=== PATIENT | male | born 1965 | race Caucasian/White ===

== ENCOUNTER 2020-02-06 22:01 | Inpatient (IN) | payer MEDICARE, MEDICAID ==
[~2020-02-06] VITALS: Ht 167.6 cm; Wt 54.4 kg
[2020-02-06 23:02] LABS: BASOPHILS % 0.4 % (0.0-2.0); EOSINOPHILS % 1.2 % (0.0-5.0); HEMATOCRIT. 35.9 % (42.0-52.0); HEMOGLOBIN. 12.1 g/dL (14.0-18.0); LYMPHOCYTES % 14.1 % (20.0-50.0); MEAN CORPUSCULAR HEMOGLOBIN 31.9 pg (28.0-32.0); MEAN CORPUSCULAR VOLUME 94.9 fL (80.0-94.0); MEAN PLATELET VOLUME 9.8 fl (7.4-10.4); MONOCYTES % 2.3 % (2.0-8.0); PLATELET 300 x1000/uL (130-400); RED BLOOD CELL COUNT 3.78 mill/uL (4.7-6.1); RED CELL DISTRIBUTION WIDTH 15.3 % (11.6-14.6)
[2020-02-06 23:02] LABS: CLARITY URINE CLEAR (CLEAR); COLOR URINE YELLOW (YELLOW); KETONES URINE 1+ (NEGATIVE); LEUKOCYTE ESTERASE URINE NEGATIVE (NEGATIVE); NITRITE URINE NEGATIVE (NEGATIVE); OCCULT BLOOD URINE NEGATIVE (NEGATIVE); PROTEIN URINE 2+ (NEGATIVE); SPECIFIC GRAVITY URINE 1.023 (1.005-1.030); UROBILINOGEN URINE 0.2 E.U./dL (0.2-1.0)
[2020-02-06 23:07] LABS: CHLORIDE 109 mEq/L (98-107)
[2020-02-06 23:11] LABS: ETHANOL BLOOD < 10 mg/dL
[2020-02-06 23:14] LABS: *AMPHETAMINES SCREEN URINE NEGATIVE (NEGATIVE); *BARBITURATES SCREEN URINE NEGATIVE (NEGATIVE); *BENZODIAZEPINES SCREEN URINE NEGATIVE (NEGATIVE); *COCAINE SCREEN URINE NEGATIVE (NEGATIVE)
[2020-02-06 23:15] LABS: CANNABINOID URINE SCREEN NEGATIVE (NEGATIVE); METHADONE URINE SCREEN NEGATIVE (NEGATIVE); OPIATES URINE SCREEN NEGATIVE (NEGATIVE); PHENCYCLIDINE URINE SCREEN NEGATIVE (NEGATIVE)
[2020-02-07] MEDS ORDERED: DEXTROSE 50% WATER 50ML SYRINGE IV ONE ×3 (00:38→01:45)
[2020-02-07] MEDS ORDERED: DEXT 10% WATER 1,000 ML IV ONE (01:32)
[2020-02-07] MEDS ORDERED: ACETAMINOPHEN 325MG TABLET PO PRN (02:00)
[2020-02-07] MEDS ORDERED: CLONIDINE 0.1MG TABLET PO PRN (02:00)
[2020-02-07] MEDS ORDERED: ONDANSETRON HCL 4MG/2ML INJ IV PRN (02:00)
[2020-02-07] MEDS ORDERED: DEXT 10% WATER 1,000 ML IV SCH (02:00)
[2020-02-07] MEDS ORDERED: MAGNESIUM/ALUMINUM HYDROXIDE/SIMETHICONE 30ML UDC PO PRN (02:00)
[2020-02-07 11:47] LABS: CHLORIDE 107 mEq/L (98-107)
[2020-02-08 04:13] LABS: BASOPHILS % 0.8 % (0.0-2.0); EOSINOPHILS % 5.1 % (0.0-5.0); HEMATOCRIT. 36.3 % (42.0-52.0); MEAN CORPUSCULAR HEMOGLOBIN 31.6 pg (28.0-32.0); MEAN CORPUSCULAR VOLUME 95.2 fL (80.0-94.0); MEAN PLATELET VOLUME 9.3 fl (7.4-10.4); MONOCYTES % 6.9 % (2.0-8.0); NEUTROPHILS % 62.2 % (40.0-76.0); PLATELET 272 x1000/uL (130-400); RED BLOOD CELL COUNT 3.81 mill/uL (4.7-6.1); RED CELL DISTRIBUTION WIDTH 15.3 % (11.6-14.6)
[2020-02-08 04:19] LABS: CHLORIDE 109 mEq/L (98-107)
[2020-02-08] MEDS ORDERED: INSULIN LISPRO 100 UNITS/ML SUBCUT SCH (08:00)
[2020-02-08] MEDS ORDERED: INSULIN LISPRO 100 UNITS/ML SUBCUT NR (17:45)
[2020-02-08] MEDS: INSULIN GLARGINE UD 100 UNITS/ML SYR SUBCUT SCH (19:20)
[2020-02-09] MEDS: BLOOD SUGAR DIAGNOSTIC STRIP TEST SCH ×4 (09:00→21:46)
[2020-02-09] MEDS: INSULIN GLARGINE UD 100 UNITS/ML SYR SUBCUT SCH ×2 (10:00→13:22)
[2020-02-09 16:33] LABS: BASOPHILS % 1.2 % (0.0-2.0); HEMATOCRIT. 38.4 % (42.0-52.0); HEMOGLOBIN. 12.9 g/dL (14.0-18.0); LYMPHOCYTES % 24.1 % (20.0-50.0); MEAN CORPUSCULAR HEMOGLOBIN 31.9 pg (28.0-32.0); MEAN CORPUSCULAR VOLUME 94.6 fL (80.0-94.0); MEAN PLATELET VOLUME 9.4 fl (7.4-10.4); MONOCYTES % 6.4 % (2.0-8.0); NEUTROPHILS % 65.3 % (40.0-76.0); PLATELET 322 x1000/uL (130-400); RED BLOOD CELL COUNT 4.06 mill/uL (4.7-6.1); RED CELL DISTRIBUTION WIDTH 15.3 % (11.6-14.6)
[2020-02-09 16:36] LABS: CHLORIDE 103 mEq/L (98-107)
[2020-02-09 21:25] VITALS: BP 129/77
[2020-02-09 21:30] VITALS: BP 129/77
[2020-02-09 22:00] VITALS: BP 129/77
[2020-02-09] MEDS: INSULIN REGULAR (HUMULIN R) 300UNITS/3ML SUBCUT NR (22:45)
[2020-02-10] MEDS: BLOOD SUGAR DIAGNOSTIC STRIP TEST SCH ×4 (07:21→21:22)
[2020-02-10 08:00] VITALS: BP 122/66
[2020-02-10] MEDS: ENOXAPARIN 40MG/0.4ML SYR SUBCUT SCH (09:00)
[2020-02-10] MEDS: INSULIN REGULAR (HUMULIN R) 300UNITS/3ML SUBCUT NR (09:06)
[2020-02-10] MEDS: INSULIN GLARGINE UD 100 UNITS/ML SYR SUBCUT SCH ×2 (09:49→16:41)
[2020-02-10] MEDS ORDERED: DEXTROSE 50% WATER 50ML SYRINGE IV PRN (12:45)
[2020-02-10] MEDS ORDERED: INSULIN LISPRO 100 UNITS/ML SUBCUT SCH (12:50)
[2020-02-10 15:53] VITALS: BP 119/56
[2020-02-10] MEDS ORDERED: INSULIN LISPRO 100 UNITS/ML SUBCUT NR (17:15)
[2020-02-10] MEDS: INSULIN LISPRO 100 UNITS/ML SUBCUT SCH (17:34)
[2020-02-10] MEDS ORDERED: INSULIN REGULAR (HUMULIN R) 300UNITS/3ML SUBCUT NR (18:00)
[2020-02-10 20:00] VITALS: BP 147/63
[2020-02-10] MEDS ORDERED: INSULIN GLARGINE UD 100 UNITS/ML SYR SUBCUT SCH ×2 (22:00→23:00)
[2020-02-11] MEDS: INSULIN LISPRO 100 UNITS/ML SUBCUT SCH ×3 (06:54→17:20)
[2020-02-11] MEDS: BLOOD SUGAR DIAGNOSTIC STRIP TEST SCH ×3 (06:54→17:20)
[2020-02-11 07:24] VITALS: BP 110/50
[2020-02-11] MEDS: ENOXAPARIN 40MG/0.4ML SYR SUBCUT SCH (08:52)
== END 2020-02-11 17:29 | disposition left against medical advice (07) | DRG 918 ==
LOC: ER 22:01 → EDBEDREQ 02-07 03:27 → EDBEDREQTM 02-07 03:29 → EDBEDREQSVC 02-07 11:34 → EDBEDREQTM 02-08 07:50 → EDBEDREQDT 02-08 07:50 → EDBEDREQSVC 02-09 10:54 → ENRESERV 02-09 19:02 → 6EST 02-09 21:24
PROVIDERS: ADMIT Hospitalist; ATTEND Hospitalist
DX: T38.3X2A Poisoning by insulin and oral hypoglycemic [antidiabetic] drugs, intentional self-harm, initial encounter (principal); K21.9 Gastro-esophageal reflux disease without esophagitis; F32.9 Major depressive disorder, single episode, unspecified; E11.649 Type 2 diabetes mellitus with hypoglycemia without coma; Y92.89 Other specified places as the place of occurrence of the external cause
CPT/HCPCS: 36415; 80053; 80305; 80307; 80320; 80329; 81003; 82962; 83036; 85025; 93005; 96365; 96366; 96376; 99291; J1650; J1815; G0480

== ENCOUNTER 2020-02-12 08:13 | Emergency (ER) | payer MEDICARE, MEDICAID ==
[~2020-02-12] VITALS: Ht 170.2 cm; Wt 59.0 kg
[2020-02-12] MEDS ORDERED: SODIUM CHLORIDE 0.9% 1,000 ML IV ONE ×2 (09:02→11:28)
[2020-02-12 09:45] LABS: BASOPHILS % 0.7 % (0.0-2.0); EOSINOPHILS % 0.1 % (0.0-5.0); HEMATOCRIT. 41.6 % (42.0-52.0); HEMOGLOBIN. 13.8 g/dL (14.0-18.0); MEAN CORPUSCULAR HEMOGLOBIN 31.6 pg (28.0-32.0); MEAN CORPUSCULAR VOLUME 95.5 fL (80.0-94.0); MEAN PLATELET VOLUME 9.7 fl (7.4-10.4); NEUTROPHILS % 78.2 % (40.0-76.0); PLATELET 356 x1000/uL (130-400); RED BLOOD CELL COUNT 4.36 mill/uL (4.7-6.1); RED CELL DISTRIBUTION WIDTH 14.7 % (11.6-14.6)
[2020-02-12 09:51] LABS: CHLORIDE 97 mEq/L (98-107)
[2020-02-12 09:59] LABS: BETA HYDROXYBUTYRATE 1.9 mMol/L (0.0-0.3)
[2020-02-12 10:28] LABS: CLARITY URINE CLEAR (CLEAR); COLOR URINE YELLOW (YELLOW); KETONES URINE 1+ (NEGATIVE); LEUKOCYTE ESTERASE URINE NEGATIVE (NEGATIVE); NITRITE URINE NEGATIVE (NEGATIVE); OCCULT BLOOD URINE NEGATIVE (NEGATIVE); PROTEIN URINE 1+ (NEGATIVE); SPECIFIC GRAVITY URINE 1.028 (1.005-1.030); UROBILINOGEN URINE 0.2 E.U./dL (0.2-1.0)
[2020-02-12] MEDS ORDERED: INSULIN REGULAR (HUMULIN R) 300UNITS/3ML SUBCUT ONE ×2 (10:30→11:30)
[2020-02-12] MEDS ORDERED: SODIUM CHLORIDE 0.9% 1,000 ML IV SCH (14:51)
[2020-02-12] MEDS ORDERED: MAGNESIUM/ALUMINUM HYDROXIDE/SIMETHICONE 30ML UDC PO PRN (15:00)
[2020-02-12] MEDS ORDERED: LORAZEPAM 2MG/ML CPJ IV PRN (15:00)
[2020-02-12] MEDS ORDERED: HYDROCODONE/ACETAMINOPHEN 5/325MG TABLET PO PRN (15:00)
[2020-02-12] MEDS ORDERED: ONDANSETRON HCL 4MG/2ML INJ IV PRN (15:00)
[2020-02-12] MEDS ORDERED: CLONIDINE 0.1MG TABLET PO PRN (15:00)
[2020-02-12] MEDS ORDERED: ACETAMINOPHEN 325MG TABLET PO PRN (15:00)
[2020-02-12 20:27] VITALS: BP 101/62
[2020-02-12] MEDS ORDERED: INSULIN GLARGINE UD 100 UNITS/ML SYR SUBCUT SCH (22:00)
== END 2020-02-12 21:48 | disposition left against medical advice (07) ==
LOC: ER 08:13 → CANRESERV 21:37 → ENRESERV 21:37 → ER 21:48 → CANBEDREQ 21:49
DX: E11.65 Type 2 diabetes mellitus with hyperglycemia (principal); K21.9 Gastro-esophageal reflux disease without esophagitis; E87.8 Other disorders of electrolyte and fluid balance, not elsewhere classified; N28.9 Disorder of kidney and ureter, unspecified; F17.200 Nicotine dependence, unspecified, uncomplicated; Z79.4 Long term (current) use of insulin
CPT/HCPCS: 36415; 71045; 80053; 81003; 82010; 82962; 83690; 85025; 96360; 96361; 99285; J7030; J1815

== ENCOUNTER 2020-02-13 13:52 | Emergency (ER) | payer MEDICARE, MEDICAID ==
[~2020-02-13] VITALS: Ht 177.8 cm; Wt 68.0 kg
[2020-02-13] MEDS ORDERED: ONDANSETRON HCL 4MG/2ML INJ IV STA (14:36)
[2020-02-13] MEDS ORDERED: SODIUM CHLORIDE 0.9% 1,000 ML IV ONE (14:36)
[2020-02-13 15:26] LABS: BASOPHILS % 0.3 % (0.0-2.0); HEMATOCRIT. 44.3 % (42.0-52.0); HEMOGLOBIN. 13.3 g/dL (14.0-18.0); LYMPHOCYTES % 9.6 % (20.0-50.0); MEAN CORPUSCULAR HEMOGLOBIN 31.4 pg (28.0-32.0); MEAN CORPUSCULAR VOLUME 104.9 fL (80.0-94.0); MEAN PLATELET VOLUME 10.5 fl (7.4-10.4); MONOCYTES % 10.2 % (2.0-8.0); NEUTROPHILS % 79.9 % (40.0-76.0); PLATELET 351 x1000/uL (130-400); RED BLOOD CELL COUNT 4.23 mill/uL (4.7-6.1); RED CELL DISTRIBUTION WIDTH 16.4 % (11.6-14.6)
[2020-02-13 15:31] LABS: CHLORIDE 81 mEq/L (98-107)
[2020-02-13 15:31] LABS: CLARITY URINE CLEAR (CLEAR); COLOR URINE YELLOW (YELLOW); KETONES URINE 3+ (NEGATIVE); LEUKOCYTE ESTERASE URINE NEGATIVE (NEGATIVE); NITRITE URINE NEGATIVE (NEGATIVE); OCCULT BLOOD URINE 1+ (NEGATIVE); PROTEIN URINE TRACE (NEGATIVE); SPECIFIC GRAVITY URINE 1.025 (1.005-1.030); UROBILINOGEN URINE 0.2 E.U./dL (0.2-1.0)
[2020-02-13 15:32] LABS: INR 0.9; PROTHROMBIN TIME 10.3 sec (9.6-11.0)
[2020-02-13] MEDS ORDERED: INSULIN REGULAR (DRIP) 100 UNITS in SODIUM CHLORIDE 0.9% 99 ML IV SCH (16:45)
[2020-02-13 17:50] LABS: BG BASE EXCESS -19.3 mmol/L (-2.0-2.0); BG CARBOXYHEMOGLOBIN 1.3 % (0.5-1.5); BG DEOXYHEMOGLOBIN 3.4 % (0.0-5.0); BG FRACTION INSPIRED OXYGEN 21; BG HCO3 ACT 7.3 mmol/L (22.0-26.0); BG METHEMOGLOBIN 0.1 % (0.0-1.5); BG OXYGEN SATURATION 96.6 % (92.0-98.5); BG OXYHEMOGLOBIN 95.2 % (94.0-97.0); BG PCO2 20.7 mmHg (35.0-45.0); BG PH 7.167 (7.350-7.450); BG PO2 110.1 mmHg (75.0-100.0); BG SAMPLE SITE RIGHT RADIAL; BG VENT MODE ROOM AIR
[2020-02-13] MEDS ORDERED: IOHEXOL-300 100 ML BOTTLE ONE (21:35)
[2020-02-14 08:34] LABS: CHLORIDE 113 mEq/L (98-107)
[2020-02-14 08:41] LABS: BETA HYDROXYBUTYRATE 3.5 mMol/L (0.0-0.3)
[2020-02-14] MEDS ORDERED: PANTOPRAZOLE SODIUM 40 MG/VIAL IV SCH (09:15)
[2020-02-14] MEDS ORDERED: ACETAMINOPHEN 325MG TABLET PO PRN (09:15)
[2020-02-14] MEDS ORDERED: POTASSIUM CHLORIDE 20MEQ TABLET SR PO SCH (09:15)
[2020-02-14] MEDS ORDERED: ONDANSETRON HCL 4MG/2ML INJ IV PRN (09:15)
[2020-02-14] MEDS: SODIUM CHLORIDE 0.9% 1,000 ML IV SCH ×2 (10:00→21:39)
[2020-02-14 11:10] LABS: BASOPHILS % 0.5 % (0.0-2.0); EOSINOPHILS % 0.2 % (0.0-5.0); HEMATOCRIT. 37.8 % (42.0-52.0); HEMOGLOBIN. 12.6 g/dL (14.0-18.0); LYMPHOCYTES % 12.9 % (20.0-50.0); MEAN CORPUSCULAR HEMOGLOBIN 31.4 pg (28.0-32.0); MEAN CORPUSCULAR VOLUME 94.1 fL (80.0-94.0); MEAN PLATELET VOLUME 9.5 fl (7.4-10.4); MONOCYTES % 7.3 % (2.0-8.0); NEUTROPHILS % 79.1 % (40.0-76.0); PLATELET 319 x1000/uL (130-400); RED BLOOD CELL COUNT 4.02 mill/uL (4.7-6.1); RED CELL DISTRIBUTION WIDTH 14.9 % (11.6-14.6)
[2020-02-14 11:18] LABS: CHLORIDE 113 mEq/L (98-107)
[2020-02-14] MEDS: PIPERACILLIN/TAZ 3.375G PREMIX 50 ML IV SCH ×2 (12:30→18:57)
[2020-02-14] MEDS ORDERED: HEPARIN 5000 UNITS/ML VIAL SUBCUT SCH (21:00)
[2020-02-15] MEDS: PIPERACILLIN/TAZ 3.375G PREMIX 50 ML IV SCH
[2020-02-15] MEDS ORDERED: INSULIN R (DRIP) 100 UNITS in SODIUM CHLORIDE 0.9% 100ML IV PRN (02:45)
[2020-02-15 05:48] LABS: BASOPHILS % 0.9 % (0.0-2.0); EOSINOPHILS % 0.8 % (0.0-5.0); HEMATOCRIT. 38.7 % (42.0-52.0); LYMPHOCYTES % 13.9 % (20.0-50.0); MEAN CORPUSCULAR HEMOGLOBIN 31.7 pg (28.0-32.0); MEAN CORPUSCULAR VOLUME 94.3 fL (80.0-94.0); MEAN PLATELET VOLUME 9.6 fl (7.4-10.4); MONOCYTES % 5.3 % (2.0-8.0); NEUTROPHILS % 79.1 % (40.0-76.0); PLATELET 280 x1000/uL (130-400); RED BLOOD CELL COUNT 4.11 mill/uL (4.7-6.1); RED CELL DISTRIBUTION WIDTH 14.7 % (11.6-14.6)
[2020-02-15 05:55] LABS: CHLORIDE 113 mEq/L (98-107)
[2020-02-15 05:57] LABS: INR 0.9; PROTHROMBIN TIME 10.2 sec (9.6-11.0)
[2020-02-15 09:30] VITALS: BP 165/71
[2020-02-15] MEDS ORDERED: DEXTROSE 50% WATER 50ML SYRINGE IV PRN (12:30)
[2020-02-15] MEDS ORDERED: INSULIN GLARGINE UD 100 UNITS/ML SYR SUBCUT SCH (12:30)
[2020-02-15] MEDS ORDERED: BLOOD SUGAR DIAGNOSTIC STRIP TEST SCH (13:00)
[2020-02-15] MEDS ORDERED: INSULIN LISPRO 100 UNITS/ML SUBCUT SCH (13:20)
== END 2020-02-15 11:45 | disposition left against medical advice (07) ==
LOC: ER 13:52 → EDBEDREQDT 02-15 03:33 → EDBEDREQSVC 02-15 03:33 → EDBEDREQTM 02-15 03:33 → ENRESERV 02-15 07:46 → CANRESERV 02-15 07:46 → ER 02-15 11:45 → CANBEDREQ 02-15 12:54
DX: A41.9 Sepsis, unspecified organism (principal); K52.9 Noninfective gastroenteritis and colitis, unspecified; I21.4 Non-ST elevation (NSTEMI) myocardial infarction; E11.10 Type 2 diabetes mellitus with ketoacidosis without coma; N30.00 Acute cystitis without hematuria; E87.2 Acidosis; K29.00 Acute gastritis without bleeding; N17.9 Acute kidney failure, unspecified; K21.9 Gastro-esophageal reflux disease without esophagitis; E87.1 Hypo-osmolality and hyponatremia; E87.5 Hyperkalemia; R74.0 Nonspecific elevation of levels of transaminase and lactic acid dehydrogenase [LDH]; D50.9 Iron deficiency anemia, unspecified; K76.0 Fatty (change of) liver, not elsewhere classified; E87.8 Other disorders of electrolyte and fluid balance, not elsewhere classified; Z90.49 Acquired absence of other specified parts of digestive tract; Z79.4 Long term (current) use of insulin
CPT/HCPCS: 36415; 36600; 74177; 80053; 81003; 82010; 82248; 82375; 82805; 82962; 83690; 83735; 84484; 85025; 85610; 85730; 99291; J1815; J2405; J2543; J7030; J7050; Q9967; 99285

== ENCOUNTER 2020-02-15 16:05 | Inpatient (IN) | payer MEDICARE, MEDICAID ==
[~2020-02-15] VITALS: Ht 180.3 cm; Wt 53.2 kg
[2020-02-15] MEDS ORDERED: SODIUM CHLORIDE 0.9% 1,000 ML IV ONE (17:07)
[2020-02-15 18:20] LABS: HEMATOCRIT. 41.3 % (42.0-52.0); MEAN CORPUSCULAR HEMOGLOBIN 31.2 pg (28.0-32.0); MEAN CORPUSCULAR VOLUME 107.9 fL (80.0-94.0); PLATELET 247 x1000/uL (130-400); RED BLOOD CELL COUNT 3.83 mill/uL (4.7-6.1); RED CELL DISTRIBUTION WIDTH 16.1 % (11.6-14.6)
[2020-02-15 18:26] LABS: CHLORIDE 87 mEq/L (98-107)
[2020-02-15 18:30] LABS: ETHANOL BLOOD < 10 mg/dL
[2020-02-15 18:33] LABS: PROTHROMBIN TIME 10.7 sec (9.6-11.0)
[2020-02-15 18:36] LABS: BETA HYDROXYBUTYRATE 9.5 mMol/L (0.0-0.3)
[2020-02-15] MEDS: ONDANSETRON HCL 4MG/2ML INJ IV STA ×2 (18:39→18:48)
[2020-02-15] MEDS ORDERED: INSULIN REGULAR (DRIP) 100 UNITS in SODIUM CHLORIDE 0.9% 100 ML IV SCH (18:49)
[2020-02-15] MEDS ORDERED: SODIUM CHLORIDE 0.9% 1,000 ML IV STA (18:49)
[2020-02-15 18:50] LABS: CLARITY URINE CLEAR (CLEAR); COLOR URINE YELLOW (YELLOW); KETONES URINE 2+ (NEGATIVE); LEUKOCYTE ESTERASE URINE NEGATIVE (NEGATIVE); NITRITE URINE NEGATIVE (NEGATIVE); OCCULT BLOOD URINE NEGATIVE (NEGATIVE); PROTEIN URINE NEGATIVE (NEGATIVE); SPECIFIC GRAVITY URINE 1.023 (1.005-1.030); UROBILINOGEN URINE 0.2 E.U./dL (0.2-1.0)
[2020-02-15] MEDS ORDERED: SODIUM BICARBONATE 8.4% 1 MEQ/ML 50ML SYR IV ONE (19:00)
[2020-02-15] MEDS ORDERED: CALCIUM CHLORIDE 1GM/10ML SYR IV ONE (19:00)
[2020-02-15] MEDS ORDERED: INSULIN REGULAR (HUMULIN R) 300UNITS/3ML IV ONE (19:00)
[2020-02-15] MEDS ORDERED: DEXTROSE 50% WATER 50ML SYRINGE IV ONE (19:00)
[2020-02-15 19:05] LABS: *AMPHETAMINES SCREEN URINE NEGATIVE (NEGATIVE); *BARBITURATES SCREEN URINE NEGATIVE (NEGATIVE); *BENZODIAZEPINES SCREEN URINE NEGATIVE (NEGATIVE); *COCAINE SCREEN URINE NEGATIVE (NEGATIVE); METHADONE URINE SCREEN NEGATIVE (NEGATIVE); OPIATES URINE SCREEN NEGATIVE (NEGATIVE)
[2020-02-15 19:06] LABS: CANNABINOID URINE SCREEN NEGATIVE (NEGATIVE); PHENCYCLIDINE URINE SCREEN NEGATIVE (NEGATIVE)
[2020-02-15 19:44] LABS: PLATELET ESTIMATE NORMAL
[2020-02-15] MEDS ORDERED: SODIUM CHLORIDE 0.9% 1,000 ML IV SCH ×2 (20:30→21:23)
[2020-02-15] MEDS ORDERED: CEFTRIAXONE 1 G PREMIX 50 ML IV ONE (20:30)
[2020-02-15] MEDS ORDERED: GUAIFENESIN 200MG/10ML SUGAR FREE UDC PO PRN (21:30)
[2020-02-15] MEDS ORDERED: HYDRALAZINE 20MG/ML VIAL IV PRN (21:30)
[2020-02-15] MEDS ORDERED: ACETAMINOPHEN 325MG TABLET PO PRN (21:30)
[2020-02-15] MEDS ORDERED: MORPHINE SULFATE 2 MG/ML CPJ (NOT FOR IM USE) IV PRN (21:30)
[2020-02-15] MEDS ORDERED: LORAZEPAM 2MG/ML CPJ IV PRN (21:30)
[2020-02-15] MEDS ORDERED: DIPHENHYDRAMINE 50MG/ML VIAL IV PRN (21:30)
[2020-02-15] MEDS ORDERED: ONDANSETRON HCL 4MG/2ML INJ IV PRN (21:30)
[2020-02-15] MEDS ORDERED: IPRATROPIUM/ALBUTEROL 0.5-3(2.5)MG/3ML NEB HHN PRN (21:30)
[2020-02-15] MEDS ORDERED: CLONIDINE 0.1MG TABLET PO PRN (21:30)
[2020-02-15] MEDS ORDERED: HYDROCODONE/ACETAMINOPHEN 10/325MG TABLET PO PRN (21:30)
[2020-02-15] MEDS ORDERED: BLOOD SUGAR DIAGNOSTIC STRIP TEST SCH (21:30)
[2020-02-15] MEDS ORDERED: DEXTROSE 50% WATER 50ML SYRINGE IV PRN ×2 (21:30)
[2020-02-15] MEDS ORDERED: ENOXAPARIN 40MG/0.4ML SYR SUBCUT SCH (21:30)
[2020-02-15] MEDS ORDERED: MAGNESIUM/ALUMINUM HYDROXIDE/SIMETHICONE 30ML UDC PO PRN (21:30)
[2020-02-15] MEDS ORDERED: DOCUSATE SODIUM 100MG CAPSULE PO PRN (21:30)
[2020-02-15 21:52] LABS: PHOSPHORUS 5.3 mg/dL (2.5-4.9)
[2020-02-15 21:55] LABS: CREATINE KINASE MB FRACTION 4.5 ng/mL (0.5-3.6)
[2020-02-15 21:56] LABS: BG BASE EXCESS -19.7 mmol/L (-2.0-2.0); BG CARBOXYHEMOGLOBIN 0.3 % (0.5-1.5); BG DEOXYHEMOGLOBIN 3.4 % (0.0-5.0); BG FRACTION INSPIRED OXYGEN 21; BG METHEMOGLOBIN 0.3 % (0.0-1.5); BG OXYGEN SATURATION 96.6 % (92.0-98.5); BG PCO2 15.3 mmHg (35.0-45.0); BG PH 7.209 (7.350-7.450); BG PO2 100.7 mmHg (75.0-100.0); BG SAMPLE SITE LEFT BRACHIAL; BG TOTAL HEMOGLOBIN 11.1 g/dL (12.0-18.0); BG VENT MODE ROOM AIR
[2020-02-15] MEDS ORDERED: SODIUM BICARBONATE 8.4% 1 MEQ/ML 50ML SYR IV NR (22:15)
[2020-02-15] MEDS: ENOXAPARIN 60MG/0.6ML SYR SUBCUT SCH (22:53)
[2020-02-16 00:37] LABS: PHOSPHORUS 2.2 mg/dL (2.5-4.9)
[2020-02-16 01:54] LABS: CHLORIDE 111 mEq/L (98-107)
[2020-02-16 01:59] LABS: PHOSPHORUS 1.8 mg/dL (2.5-4.9)
[2020-02-16] MEDS ORDERED: SODIUM CHL 0.45% + KCL 20MEQ/L 1,000 ML IV SCH ×2 (04:00→09:00)
[2020-02-16 06:44] LABS: BASOPHILS % 0.3 % (0.0-2.0); EOSINOPHILS % 0.3 % (0.0-5.0); HEMOGLOBIN. 10.1 g/dL (14.0-18.0); LYMPHOCYTES % 18.2 % (20.0-50.0); MEAN CORPUSCULAR HEMOGLOBIN 31.3 pg (28.0-32.0); MEAN CORPUSCULAR VOLUME 93.3 fL (80.0-94.0); MEAN PLATELET VOLUME 9.7 fl (7.4-10.4); MONOCYTES % 6.8 % (2.0-8.0); NEUTROPHILS % 74.4 % (40.0-76.0); PLATELET 227 x1000/uL (130-400); RED BLOOD CELL COUNT 3.22 mill/uL (4.7-6.1); RED CELL DISTRIBUTION WIDTH 14.5 % (11.6-14.6)
[2020-02-16 06:55] LABS: CHLORIDE 112 mEq/L (98-107)
[2020-02-16 07:05] LABS: CREATINE KINASE 102 IU/L (39-308)
[2020-02-16 07:06] LABS: CREATINE KINASE MB FRACTION 6.6 ng/mL (0.5-3.6)
[2020-02-16 09:39] LABS: BG BASE EXCESS -8.6 mmol/L (-2.0-2.0); BG DEOXYHEMOGLOBIN 6.4 % (0.0-5.0); BG FRACTION INSPIRED OXYGEN 21; BG HCO3 ACT 14.9 mmol/L (22.0-26.0); BG METHEMOGLOBIN 0.3 % (0.0-1.5); BG OXYGEN SATURATION 93.6 % (92.0-98.5); BG OXYHEMOGLOBIN 93.3 % (94.0-97.0); BG PH 7.394 (7.350-7.450); BG PO2 73.9 mmHg (75.0-100.0); BG SAMPLE SITE RIGHT BRACHIAL; BG TOTAL HEMOGLOBIN 10.1 g/dL (12.0-18.0); BG VENT MODE ROOM AIR
[2020-02-16 10:04] LABS: CHLORIDE 114 mEq/L (98-107)
[2020-02-16] MEDS ORDERED: DEXTROSE 50% WATER 50ML SYRINGE IV PRN (11:00)
[2020-02-16] MEDS ORDERED: SODIUM CHLORIDE 0.45% 1,000 ML IV ONE (12:00)
[2020-02-16 12:52] LABS: CHLORIDE 113 mEq/L (98-107)
[2020-02-16 16:28] LABS: CHLORIDE 109 mEq/L (98-107)
[2020-02-16] MEDS: BLOOD SUGAR DIAGNOSTIC STRIP TEST SCH ×2 (16:49→21:30)
[2020-02-16] MEDS: INSULIN LISPRO 100 UNITS/ML SUBCUT SCH ×2 (16:53→21:46)
[2020-02-16 21:00] VITALS: BP 131/68
[2020-02-16 21:03] VITALS: BP 134/71
[2020-02-16] MEDS: ENOXAPARIN 60MG/0.6ML SYR SUBCUT SCH (21:31)
[2020-02-16] MEDS: SODIUM CHLORIDE 0.9% INJ 3ML FLUSH IVF SCH (21:52)
[2020-02-16 22:00] VITALS: BP 139/63
[2020-02-17] VITALS (12 sets, daily range): BP systolic 105–152; BP diastolic 55–82
[2020-02-17] MEDS ORDERED: ERYT1OIN6 OP (01:19)
[2020-02-17] MEDS ORDERED: B12/1TAB MT (01:20)
[2020-02-17] MEDS ORDERED: VITA-261 MT (01:21)
[2020-02-17] MEDS ORDERED: ASCO-362 PO (01:22)
[2020-02-17] MEDS ORDERED: ASPI-1158 PO (01:27)
[2020-02-17] MEDS ORDERED: FLUT15.844 BOTHNSTRLS (01:27)
[2020-02-17] MEDS ORDERED: FLUO60SO3 TP (01:30)
[2020-02-17] MEDS ORDERED: MULT-1146 MT (01:31)
[2020-02-17] MEDS ORDERED: ARTIFICIAL TEARS RIGHTEYE (01:35)
[2020-02-17] MEDS ORDERED: GLYC30DR OP (01:38)
[2020-02-17] MEDS ORDERED: PREDNISONE LEFTEYE (02:14)
[2020-02-17] MEDS ORDERED: KETO15CR2 TP (02:15)
[2020-02-17] MEDS: BLOOD SUGAR DIAGNOSTIC STRIP TEST SCH ×4 (06:06→20:52)
[2020-02-17] MEDS: SODIUM CHLORIDE 0.9% INJ 3ML FLUSH IVF SCH ×3 (06:07→21:08)
[2020-02-17] MEDS: ENOXAPARIN 60MG/0.6ML SYR SUBCUT SCH ×3 (08:01→20:52)
[2020-02-17] MEDS: INSULIN LISPRO 100 UNITS/ML SUBCUT SCH ×4 (08:02→21:00)
[2020-02-17] MEDS: ASPIRIN 81MG TABLET PO SCH (10:26)
[2020-02-17] MEDS: CLOPIDOGREL 75MG TABLET PO SCH (10:26)
[2020-02-17] MEDS: INSULIN GLARGINE UD 100 UNITS/ML SYR SUBCUT SCH (10:27)
[2020-02-17 10:43] LABS: HEMOGLOBIN 11.6 g/dL (14.0-18.0); MEAN CORPUSCULAR HEMOGLOBIN 31.9 pg (28.0-32.0); MEAN CORPUSCULAR VOLUME 96.5 fL (80.0-94.0); PLATELET 232 x1000/uL (130-400); RED BLOOD CELL COUNT 3.63 mill/uL (4.7-6.1); RED CELL DISTRIBUTION WIDTH 15.1 % (11.6-14.6)
[2020-02-17 10:53] LABS: CHLORIDE 104 mEq/L (98-107)
[2020-02-17] MEDS: METOPROLOL TARTRATE 25MG TABLET PO SCH (20:52)
[2020-02-17] MEDS ORDERED: ATORVASTATIN CALCIUM 40MG TABLET PO SCH (21:00)
[2020-02-18] VITALS: BP 116/61
[2020-02-18 02:00] VITALS: BP 140/75
[2020-02-18 06:00] VITALS: BP 136/79
[2020-02-18] MEDS: BLOOD SUGAR DIAGNOSTIC STRIP TEST SCH ×2 (06:51→12:01)
[2020-02-18] MEDS: SODIUM CHLORIDE 0.9% INJ 3ML FLUSH IVF SCH (06:52)
[2020-02-18] MEDS: INSULIN LISPRO 100 UNITS/ML SUBCUT SCH ×3 (07:20→12:04)
[2020-02-18 07:27] LABS: HEMATOCRIT. 30.8 % (42.0-52.0); HEMOGLOBIN. 10.6 g/dL (14.0-18.0); MEAN CORPUSCULAR VOLUME 93.1 fL (80.0-94.0); MEAN PLATELET VOLUME 10.1 fl (7.4-10.4); PLATELET 210 x1000/uL (130-400); RED CELL DISTRIBUTION WIDTH 14.4 % (11.6-14.6)
[2020-02-18 08:00] VITALS: BP 131/65
[2020-02-18 08:01] LABS: CHLORIDE 106 mEq/L (98-107)
[2020-02-18] MEDS: METOPROLOL TARTRATE 25MG TABLET PO SCH ×2 (08:45→08:55)
[2020-02-18] MEDS: CLOPIDOGREL 75MG TABLET PO SCH ×2 (08:45→08:55)
[2020-02-18] MEDS: ENOXAPARIN 60MG/0.6ML SYR SUBCUT SCH ×2 (08:47→08:55)
[2020-02-18] MEDS: ASPIRIN 81MG TABLET PO SCH ×2 (08:47→08:55)
[2020-02-18 10:00] VITALS: BP 107/45
[2020-02-18] MEDS: INSULIN GLARGINE UD 100 UNITS/ML SYR SUBCUT SCH (10:00)
[2020-02-18 11:39] VITALS: BP 171/86
[2020-02-18 17:19] LABS: PLATELET ESTIMATE NORMAL
== END 2020-02-18 12:20 | disposition left against medical advice (07) | DRG 280 ==
LOC: ER 16:05 → EDBEDREQSVC 20:49 → EDBEDREQ 20:49 → EDBEDREQSVC 02-16 11:39 → ENRESERV 02-16 19:02 → 3WST 02-16 20:52
PROVIDERS: ADMIT Internal Medicine; ATTEND Internal Medicine
DX: I21.4 Non-ST elevation (NSTEMI) myocardial infarction (principal); E10.10 Type 1 diabetes mellitus with ketoacidosis without coma; N17.0 Acute kidney failure with tubular necrosis; R65.10 Systemic inflammatory response syndrome (SIRS) of non-infectious origin without acute organ dysfunction; E87.1 Hypo-osmolality and hyponatremia; E46 Unspecified protein-calorie malnutrition; Z68.1 Body mass index [BMI] 19.9 or less, adult; E86.0 Dehydration; K21.9 Gastro-esophageal reflux disease without esophagitis; I10 Essential (primary) hypertension; E05.90 Thyrotoxicosis, unspecified without thyrotoxic crisis or storm; R74.0 Nonspecific elevation of levels of transaminase and lactic acid dehydrogenase [LDH]; E87.5 Hyperkalemia; I25.10 Atherosclerotic heart disease of native coronary artery without angina pectoris; E78.5 Hyperlipidemia, unspecified; Z59.0 Homelessness; Z79.4 Long term (current) use of insulin; Z95.5 Presence of coronary angioplasty implant and graft; Z91.19 Patient's noncompliance with other medical treatment and regimen
CPT/HCPCS: 36415; 36600; 71045; 74177; 80048; 80053; 80061; 80305; 80320; 81003; 82010; 82248; 82375; 82550; 82553; 82805; 82962; 83036; 83735; 84100; 84443; 84484; 85025; 85027; 93005; 93306; 96372; 99285; 99291; J0696; J1650; J1815; J2405; J2543; J3480; J3490; J7030; J7050; Q9967; G0480

== ENCOUNTER 2020-02-18 21:20 | Emergency (ER) | payer MEDICARE, MEDICAID ==
[~2020-02-18] VITALS: Ht 175.3 cm; Wt 52.0 kg
[~2020-02-18 21:20] MED LIST: ARTIFICIAL TEARS RIGHTEYE; ASCO-362 PO; ASPI-1158 PO; B12/1TAB MT; ERYT1OIN6 OP; FLUO60SO3 TP; FLUT15.844 BOTHNSTRLS; GLYC30DR OP; KETO15CR2 TP; MULT-1146 MT; PREDNISONE LEFTEYE; VITA-261 MT
[2020-02-18] MEDS ORDERED: SODIUM CHLORIDE 0.9% 1,000 ML IV ONE (22:40)
[2020-02-18] MEDS ORDERED: INSULIN REGULAR (HUMULIN R) 300UNITS/3ML SUBCUT ONE (22:45)
[2020-02-18 23:13] LABS: BG BASE EXCESS -2.1 mmol/L (-2.0-2.0); BG CARBOXYHEMOGLOBIN 4.8 % (0.5-1.5); BG FRACTION INSPIRED OXYGEN 21; BG HCO3 ACT 22.7 mmol/L (22.0-26.0); BG METHEMOGLOBIN 0.3 % (0.0-1.5); BG OXYGEN SATURATION 95.8 % (92.0-98.5); BG OXYHEMOGLOBIN 90.9 % (94.0-97.0); BG PCO2 38.9 mmHg (35.0-45.0); BG PH 7.384 (7.350-7.450); BG PO2 83.8 mmHg (75.0-100.0); BG SAMPLE SITE RIGHT BRACHIAL; BG TOTAL HEMOGLOBIN 12.1 g/dL (12.0-18.0); BG VENT MODE ROOM AIR
[2020-02-18 23:33] LABS: BASOPHILS % 0.4 % (0.0-2.0); EOSINOPHILS % 0.4 % (0.0-5.0); HEMATOCRIT. 39.8 % (42.0-52.0); HEMOGLOBIN. 13.3 g/dL (14.0-18.0); MEAN CORPUSCULAR HEMOGLOBIN 31.9 pg (28.0-32.0); MEAN CORPUSCULAR VOLUME 95.4 fL (80.0-94.0); MEAN PLATELET VOLUME 10.4 fl (7.4-10.4); MONOCYTES % 4.4 % (2.0-8.0); NEUTROPHILS % 80.8 % (40.0-76.0); PLATELET 241 x1000/uL (130-400); RED BLOOD CELL COUNT 4.17 mill/uL (4.7-6.1); RED CELL DISTRIBUTION WIDTH 14.7 % (11.6-14.6)
[2020-02-18 23:52] LABS: CHLORIDE 100 mEq/L (98-107)
[2020-02-18 23:53] LABS: CLARITY URINE CLEAR (CLEAR); COLOR URINE YELLOW (YELLOW); KETONES URINE 2+ (NEGATIVE); LEUKOCYTE ESTERASE URINE NEGATIVE (NEGATIVE); NITRITE URINE NEGATIVE (NEGATIVE); OCCULT BLOOD URINE TRACE (NEGATIVE); PROTEIN URINE TRACE (NEGATIVE); SPECIFIC GRAVITY URINE 1.033 (1.005-1.030); UROBILINOGEN URINE 0.2 E.U./dL (0.2-1.0)
[2020-02-19 00:01] LABS: BETA HYDROXYBUTYRATE 3.6 mMol/L (0.0-0.3)
[2020-02-19 02:52] VITALS: BP 117/66
== END 2020-02-19 03:23 | disposition home or self-care (01) ==
LOC: ER 21:20
DX: E11.65 Type 2 diabetes mellitus with hyperglycemia (principal); K21.9 Gastro-esophageal reflux disease without esophagitis; Z79.899 Other long term (current) drug therapy
CPT/HCPCS: 36415; 36600; 80053; 81003; 82010; 82375; 82805; 82962; 83690; 85025; 96360; 96372; 99283; J1815; J7030